=== PATIENT | female | born 1950 | race Caucasian/White ===

== ENCOUNTER 2017-05-22 04:29 | Emergency (ER) | payer OTHER ==
[~2017-05-22] VITALS: Ht 180.3 cm; Wt 94.4 kg
[2017-05-22 05:23] LABS: HEMATOCRIT 39.5 % (36.0-46.0); HEMOGLOBIN 13.6 G/DL (11.9-15.5); MCH 29.8 PG (29.0-34.0); MCHC 34.4 G/DL (30.0-36.0); MCV 86.4 FL (83-99); PLATELET COUNT 247 K/uL (156-360); RBC DIS.WIDTH-SD 40.6 % (39-53); RED BLOOD COUNT 4.57 M/uL (3.80-5.20); WHITE BLOOD COUNT 15.3 K/uL (4.1-10.2)
[2017-05-22 05:35] LABS: ALBUMIN 4.1 g/dL (3.2-4.8); CHLORIDE 108 mEq/L (99-109); POTASSIUM 4.2 mEq/L (3.7-5.4); SODIUM 141 mEq/L (136-147)
[2017-05-22 05:37] LABS: GLUCOSE 110 mg/dL (70-99); TOTAL PROTEIN 7.8 g/dL (6.4-8.3)
[2017-05-22 05:41] LABS: ALKALINE PHOSPHATASE 103 IU/L (3-129); CREATININE 0.8 mg/dL (0.6-1.3); GFR ESTIMATE (CALCULATED) > 59 mL/min/
[2017-05-22 05:42] LABS: UREA NITROGEN (BUN) 11 mg/dL (9-23)
[2017-05-22 05:43] LABS: AST (GOT) 15 IU/L (2-34)
[2017-05-22 05:44] LABS: ALT (GPT) 24 IU/L (3-49)
[2017-05-22 06:34] LABS: APPEARANCE SL.HAZY ((CLEAR)); COLOR DK YELLOW ((YELLOW)); GLUCOSE (STRIP) NEGATIVE
[2017-05-22 06:35] LABS: BILIRUBIN SMALL; BLOOD LARGE; KETONES NEGATIVE; PROTEIN (STRIP) TRACE
[2017-05-22 06:36] LABS: LEUKOCYTES NEGATIVE; NITRITE NEGATIVE; UROBILINOGEN 0.2 MG/DL (0.2-1.0)
[2017-05-22 07:43] LABS: INTER. NORMALIZED RATIO 2.1
[2017-05-22 08:24] LABS: BACTERIA 2+ /HPF; EPITHELIAL CELLS RARE /HPF; MUCUS 3+ /LPF; UCUL ADDED? YES; WHITE BLOOD CELLS 0-5 /HPF (0-5)
[2017-05-22] MEDS ORDERED: TYLENOL WITH C1 EACH PO (09:05)
[2017-05-22] MEDS ORDERED: FLAGYL500 MG PO (09:05)
[2017-05-22] MEDS ORDERED: CIPRO500 MG PO (09:05)
[2017-05-22 09:30] VITALS: BP 132/64
== END 2017-05-22 09:31 | disposition home or self-care (01) ==
LOC: EME 04:29
PROVIDERS: Emergency Medicine
DX: K57.32 Diverticulitis of large intestine without perforation or abscess without bleeding (principal); Z79.01 Long term (current) use of anticoagulants; R31.9 Hematuria, unspecified
CPT/HCPCS: 74176; 80053; 81003; 85027; 85610; 87086; 99281; 99285; J2270; J7030

== ENCOUNTER → 2017-10-25 | Outpatient (CLI) | payer OTHER ==
[~2017-10-25] MED LIST: CIPRO500 MG PO; FLAGYL500 MG PO; TYLENOL WITH C1 EACH PO
== END | disposition home or self-care (01) ==
LOC: RAD 13:38
DX: G96.19 Other disorders of meninges, not elsewhere classified (principal); M54.16 Radiculopathy, lumbar region
CPT/HCPCS: 62304; 72132